=== PATIENT | female | born 1945 | race Caucasian/White ===

== ENCOUNTER 2022-11-27 06:41 | Emergency (ER) | payer OTHER ==
[~2022-11-27] VITALS: Wt 2.9 kg
[2022-11-27 06:41] VITALS: BP 48/26
[~2022-11-27 06:41] MED LIST: AVPAK AZITHROM250 M1 PO; BUDESONIDE-FO10.2 G1 INH; Ipratropium Brom3 ML INH; LEVOTHYROXINE50 MCG PO; METOPROLOL SUCC50 M1 PO; OMNICEF300 MG PO; PREDNISONE10 MG PO; PROTONIX40 MG PO; PROVENTIL HFA6.7 GM INH
== END 2022-11-27 09:24 ==
LOC: ED 06:41
DX: I46.9 Cardiac arrest, cause unspecified (principal); I11.0 Hypertensive heart disease with heart failure; J44.9 Chronic obstructive pulmonary disease, unspecified; E78.5 Hyperlipidemia, unspecified; F41.9 Anxiety disorder, unspecified; Z90.710 Acquired absence of both cervix and uterus; Z90.11 Acquired absence of right breast and nipple; Z87.891 Personal history of nicotine dependence